=== PATIENT | male | born 1980 | race Caucasian/White ===

== ENCOUNTER 2023-12-03 08:55 | Day surgery (SDC) | payer BC ==
[~2023-12-03 08:55] MED LIST: Propofol 200 MG/20 ML SDV ONE
[2023-12-03] MEDS: Lactated Ringers 1,000 ML IV SCH (09:39)
[2023-12-03] MEDS ORDERED: Sodium Chloride 0.9% 10 ML Syringe FLUSH PRN (09:45)
[2023-12-03] MEDS ORDERED: Propofol 200 MG/20 ML SDV ONE (10:21)
== END 2023-12-03 11:50 | disposition home or self-care (01) ==
LOC: LL.SDS 08:55
PROVIDERS: ATTEND Surgery
DX: Z12.11 Encounter for screening for malignant neoplasm of colon (principal); I10 Essential (primary) hypertension; F17.220 Nicotine dependence, chewing tobacco, uncomplicated; Z79.899 Other long term (current) drug therapy; Z88.5 Allergy status to narcotic agent
CPT/HCPCS: J2704; J7120